=== PATIENT | male | born 1955 | race Caucasian/White ===

== ENCOUNTER 2019-09-28 05:30 | Inpatient (IN) | payer OTHER ==
[2019-09-21 14:43] LABS: BASOPHILS % (AUTO) 0.7 % (0-1); EOSINOPHILS # (AUTO) 0.1 X10'3 (0-0.9); EOSINOPHILS % (AUTO) 1.1 % (0-6); LYMPHOCYTES # (AUTO) 1.3 X10'3 (1.1-4.8); MEAN CORPUSCULAR HEMOGLOBIN 23.9 PG (27.0-31.0); MEAN CORPUSCULAR HGB CONC 31.5 g/dL (33.0-36.5); MEAN CORPUSCULAR VOLUME 75.6 FL (78-98); MEAN PLATELET VOLUME 7.5 FL (7.4-10.4); MONOCYTES # (AUTO) 0.7 X10'3 (0-0.9); MONOCYTES % (AUTO) 9.6 % (2-12); NEUTROPHILS # (AUTO) 4.9 X10'3 (1.8-7.7); NEUTROPHILS % (AUTO) 69.6 % (42-75); PRE OP HEMATOCRIT 31.5 % (42.0-52.0); PRE OP PLATELET COUNT 382 X10'3 (140-440); RED BLOOD COUNT 4.16 X10'6 (4.70-6.10); RED CELL DISTRIBUTION WIDTH 15.3 % (11.5-14.5)
[2019-09-21 14:49] LABS: PRE OP INR 1.1 INR; PRE OP PROTIME 11.3 SECONDS (9.0-12.0)
[2019-09-21 14:50] LABS: PRE OP HEMOGLOBIN 9.9 g/dL (14.0-17.9)
[2019-09-21 15:05] LABS: ALBUMIN 3.5 G/DL (3.4-5.0); ALBUMIN/GLOBULIN RATIO 1.1 (1.1-1.5); ALKALINE PHOSPHATASE 68 IU/L (46-116); BLOOD UREA NITROGEN 18 MG/DL (7-18); CALCIUM 8.4 MG/DL (8.5-10.1); CHLORIDE 108 MMOL/L (99-107); PRE OP ALT 16 U/L (30-65); PRE OP ANION GAP 7 (8-16); PRE OP AST 14 U/L (10-37); PRE OP BILIRUB, TOTAL 0.3 MG/DL (0.0-1.0); PRE OP GLUCOSE 117 MG/DL (70-104); PRE OP POTASSIUM 3.8 MMOL/L (3.4-5.1); PRE OP SODIUM 142 MMOL/L (135-145); TOTAL CARBON DIOXIDE 26.9 MMOL/L (24-32); TOTAL PROTEIN 6.6 G/DL (6.4-8.2); eGFR 61 ML/MIN
[2019-09-28] VITALS (17 sets, daily range): BP systolic 122–153; BP diastolic 63–87
[~2019-09-28] VITALS: Ht 182.9 cm; Wt 86.2 kg
[~2019-09-28 05:30] MED LIST: BECL10.62 INH; FERR325T28 PO; MONT10TA26 PO; RIVA15TA PO; ceFOXitin sod/dextrose 2g/50ml 50 ML IV ONE; famotidine 20mg tablet PO ONE; ringers solution, lacted 1,000 ML IV SCH
[2019-09-28] MEDS ORDERED: LIDOcaine 1% (10mg/ml) 2ml vial ONE (06:21)
[2019-09-28] MEDS ORDERED: ringers solution, lacted 1,000 ML IV SCH (06:23)
[2019-09-28] MEDS ORDERED: hydrALAZINE 20mg/ml inj. IV PRN (06:25)
[2019-09-28] MEDS ORDERED: fentaNYL/PF 50MCG/1 ML 2ML syringe IV PRN ×2 (06:25)
[2019-09-28] MEDS ORDERED: morphine 2 MG/ML inj. syringe IV PRN (06:25)
[2019-09-28] MEDS ORDERED: labetalol 20mg/4ml (5mg/ml) syringe IV PRN (06:25)
[2019-09-28] MEDS ORDERED: morphine 4 MG/ML inj SYRINge IV PRN (06:25)
[2019-09-28] MEDS ORDERED: ondansetron/PF 4mg/2ml inj IV PRN ×2 (06:25→12:05)
[2019-09-28] MEDS ORDERED: LIDOcaine 1% 30ml preserv. free vial ONE (06:39)
[2019-09-28] MEDS ORDERED: BUPIVAcaine/PF 2.5 mg/ml (0.25%) 30ml vial ONE (06:39)
[2019-09-28] MEDS ORDERED: fentaNYL /PF 50mcg/ml 5ml ampule ONE (07:18)
[2019-09-28] MEDS ORDERED: midazolam 2 mg/2 ml injection ONE (07:18)
[2019-09-28] MEDS ORDERED: dexamethasone sod phosphate 4mg/ml inj. ONE (07:19)
[2019-09-28] MEDS ORDERED: rocuronium 10mg/ml inj IV ONE ×3 (07:19→11:00)
[2019-09-28] MEDS ORDERED: LIDOcaine 2% (20mg/ml) 5ml vial ONE (07:19)
[2019-09-28] MEDS ORDERED: propofol inj 20 ML IV ONE (07:19)
[2019-09-28] MEDS ORDERED: neostigmine methylsulfate 1 MG/ML 10ml vial ONE (07:19)
[2019-09-28] MEDS ORDERED: ondansetron/PF 4mg/2ml inj ONE (07:19)
[2019-09-28] MEDS ORDERED: glycopyrrolate 0.2mg/ml inj ONE (07:19)
[2019-09-28] MEDS ORDERED: sevoflurane 250ml liquid IH ONE (07:36)
[2019-09-28] MEDS ORDERED: ePHEDrine 50MG/ML INJ. ONE (08:33)
[2019-09-28] MEDS ORDERED: albumin (Human) 5% 250ml 250 ML IV ONE (08:59)
[2019-09-28] MEDS ORDERED: INDOCYANINE GREEN 25 MG/10 ML VIAL IV ONE ×2 (09:15→09:20)
[2019-09-28] MEDS ORDERED: fentaNYL/PF 50MCG/1 ML 2ML syringe ONE (10:54)
--- NOTE | 2019-09-28 12:00 | NUR ---
Received from OR via BED, accompanied by Anesthesiologist DR LUX and report given by Anesthesiologist. PT DROWSY, NO S/S OF DISTRESS/DISCOMFORT, ABDOMEN W/SMALL ISLAND DRSG AT PUBIS CDI, 5 LAP SITES W/BANDLELAND CDI, COHEN TO GRAVITY DRAINAGE W/YELLOW URINE IN DRAINAGE BAG. Addendum: 09/28/19 at 1239 by Ruba Bobby RN Amended: Links added.
[2019-09-28] MEDS ORDERED: Potassium Cl inj 20 MEQ in ringers solution, lacted 1,000 ML IV SCH (12:03)
[2019-09-28] MEDS ORDERED: HYDROcodone/acetaminophen 5mg/325mg tablet PO PRN (12:05)
--- NOTE | 2019-09-28 13:18 | NUR ---
Received report from KAYLEN Yeh. Awaiting patients arrival to room 344A.
--- NOTE | 2019-09-28 13:20 | NUR ---
Report called to receiving nurse. Transferred via BED, 2 BAGS OF Belongings SENT W/PT TO ROOM 344A, [facility] TRANSPORTED PT, RECEIVING RN NOTIFIED OF PTS ARRIVAL. Special Issues communicated to receiving nurse. YES. Addendum: 09/28/19 at 1348 by Ruba Bobby RN Amended: Links added.
--- NOTE | 2019-09-28 13:42 | NUR ---
Received patient to room 344A via bed accompanied by x2 OR transportation economics teacher. Patient is alert and oriented with complaints of pain 5/10, X5 lap sites with band aids CDI. Chicas catheter patent and draining to gravity clear, yellow urine. X2 bag of belonging placed in closet. Post op vitals initiated, on 2LNC, VSS. Patient oriented to room and call light. Call light placed within patient's reach. Bed low and locked.
[2019-09-28] MEDS: ketorolac trometh. 30mg/ml inj. IV SCH ×2 (13:58→21:06)
[2019-09-28] MEDS: acetaminophen 325mg tablet PO SCH ×2 (13:58→21:06)
[2019-09-28] MEDS: Potassium Cl inj 20 MEQ in ringers solution, lacted 1,000 ML IV SCH ×2 (14:30→23:10)
--- NOTE | 2019-09-28 18:39 | NUR ---
Problems reprioritized. Patient report given, questions answered & plan of care reviewed with KAYLEN crain.
[2019-09-28] MEDS: budesonide 0.5mg/2ml UD nebule IH SCH (19:15)
[2019-09-29] VITALS: BP 117/55
[2019-09-29] MEDS: ketorolac trometh. 30mg/ml inj. IV SCH ×4 (02:20→20:15)
[2019-09-29] MEDS: acetaminophen 325mg tablet PO SCH ×4 (02:20→20:19)
[2019-09-29 03:53] VITALS: BP 125/60
[2019-09-29 05:30] LABS: BASOPHILS % (AUTO) 0.1 % (0-1); EOSINOPHILS % (AUTO) 0 % (0-6); HEMATOCRIT 25.9 % (42.0-52.0); HEMOGLOBIN 8.2 g/dl (14.0-17.9); LYMPHOCYTES # (AUTO) 1.1 X10'3 (1.1-4.8); LYMPHOCYTES % (AUTO) 9.5 % (21-51); MEAN CORPUSCULAR HEMOGLOBIN 23.9 PG (27.0-31.0); MEAN CORPUSCULAR HGB CONC 31.6 g/dL (33.0-36.5); MEAN CORPUSCULAR VOLUME 75.4 FL (78-98); MONOCYTES # (AUTO) 1.2 X10'3 (0-0.9); MONOCYTES % (AUTO) 10.4 % (2-12); NEUTROPHILS # (AUTO) 8.9 X10'3 (1.8-7.7); PLATELET COUNT 224 X10'3 (140-440); RED BLOOD COUNT 3.43 X10'6 (4.70-6.10); RED CELL DISTRIBUTION WIDTH 15.3 % (11.5-14.5); WHITE BLOOD COUNT 11.1 X10'3 (4.5-11.0)
[2019-09-29 05:34] LABS: ALBUMIN 2.9 G/DL (3.4-5.0); ANION GAP 3 (8-16); BLOOD UREA NITROGEN 16 MG/DL (7-18); BUN/CREATININE RATIO 13.7 (5.4-32.0); CHLORIDE 109 MMOL/L (99-107); CREATININE 1.17 MG/DL (0.60-1.10); GLUCOSE 102 MG/DL (70-104); POTASSIUM 4.3 MMOL/L (3.5-5.1); SODIUM 140 MMOL/L (135-145); TOTAL CARBON DIOXIDE 28.2 MMOL/L (24-32); eGFR 63 ML/MIN
--- NOTE | 2019-09-29 06:22 | NUR ---
Patient in room [facility]. I have received report from KAYLEN Sheets and had the opportunity to ask questions and assume patient care.
--- NOTE | 2019-09-29 06:26 | NUR ---
Problems reprioritized. Patient report given, questions answered & plan of care reviewed with KAYLEN Leung.
[2019-09-29] MEDS: enoxaparin 40mg/0.4ml syringe SQ SCH (07:05)
[2019-09-29] MEDS: potassium CL 20mEq in D5-1/2NS 1,000 ML IV SCH (07:35)
[2019-09-29 08:00] VITALS: BP 119/55
[2019-09-29] MEDS: budesonide 0.5mg/2ml UD nebule IH SCH ×2 (09:27→19:39)
[2019-09-29] MEDS: montelukast 10mg tablet PO SCH (09:27)
[2019-09-29 11:00] VITALS: BP 127/63
--- NOTE | 2019-09-29 11:34 | NUR ---
Patient aware there is an order for his lopez catheter to be dc but he has been on a phone call. Will remove once patient is done with phone call.
--- NOTE | 2019-09-29 12:23 | NUR ---
Patient lopez catheter dc'd. Patient tolerated well.
--- NOTE | 2019-09-29 18:00 | NUR ---
Patient in room [facility] 344. I have received report from Madhu ABDULLAHI and had the opportunity to ask questions and assume patient care.
--- NOTE | 2019-09-29 18:57 | NUR ---
Problems reprioritized. Patient report given, questions answered & plan of care reviewed with KAYLEN Wilder.
[2019-09-29 19:00] VITALS: BP 145/60
[2019-09-30] VITALS: BP 138/65
[2019-09-30] MEDS: acetaminophen 325mg tablet PO SCH ×4 (02:14→20:00)
[2019-09-30] MEDS: ketorolac trometh. 30mg/ml inj. IV SCH ×4 (02:15→20:50)
[2019-09-30] MEDS: potassium CL 20mEq in D5-1/2NS 1,000 ML IV SCH (02:20)
[2019-09-30 05:02] LABS: BASOPHILS % (AUTO) 0.4 % (0-1); EOSINOPHILS # (AUTO) 0.1 X10'3 (0-0.9); EOSINOPHILS % (AUTO) 0.9 % (0-6); HEMATOCRIT 29.5 % (42.0-52.0); HEMOGLOBIN 9.3 g/dl (14.0-17.9); LYMPHOCYTES # (AUTO) 1.7 X10'3 (1.1-4.8); LYMPHOCYTES % (AUTO) 16.9 % (21-51); MEAN CORPUSCULAR HEMOGLOBIN 23.9 PG (27.0-31.0); MEAN CORPUSCULAR HGB CONC 31.5 g/dL (33.0-36.5); MEAN CORPUSCULAR VOLUME 75.7 FL (78-98); MEAN PLATELET VOLUME 7.8 FL (7.4-10.4); MONOCYTES # (AUTO) 1.1 X10'3 (0-0.9); MONOCYTES % (AUTO) 10.7 % (2-12); NEUTROPHILS # (AUTO) 7.2 X10'3 (1.8-7.7); NEUTROPHILS % (AUTO) 71.1 % (42-75); PLATELET COUNT 256 X10'3 (140-440); RED CELL DISTRIBUTION WIDTH 15.6 % (11.5-14.5); WHITE BLOOD COUNT 10.2 X10'3 (4.5-11.0)
[2019-09-30 05:23] LABS: ALBUMIN 3.1 G/DL (3.4-5.0); ANION GAP 9 (8-16); BLOOD UREA NITROGEN 11 MG/DL (7-18); BUN/CREATININE RATIO 10.5 (5.4-32.0); CALCIUM 8.2 MG/DL (8.5-10.1); CHLORIDE 109 MMOL/L (99-107); CREATININE 1.05 MG/DL (0.60-1.10); GLUCOSE 105 MG/DL (70-104); SODIUM 144 MMOL/L (135-145); TOTAL CARBON DIOXIDE 26.3 MMOL/L (24-32); eGFR 71 ML/MIN
--- NOTE | 2019-09-30 06:20 | NUR ---
Problems reprioritized. Patient report given, questions answered & plan of care reviewed with Estrella ABDULLAHI.
--- NOTE | 2019-09-30 06:22 | NUR ---
Patient in room [facility] 344. I have received report from KAYLEN JOE and had the opportunity to ask questions and assume patient care.
[2019-09-30 07:00] VITALS: BP 136/83
[2019-09-30] MEDS: montelukast 10mg tablet PO SCH (07:13)
[2019-09-30] MEDS: enoxaparin 40mg/0.4ml syringe SQ SCH (07:14)
[2019-09-30] MEDS: budesonide 0.5mg/2ml UD nebule IH SCH ×2 (08:30→20:54)
[2019-09-30 11:00] VITALS: BP 113/68
[2019-09-30 18:15] VITALS: BP 135/72
--- NOTE | 2019-09-30 18:32 | NUR ---
Problems reprioritized. Patient report given, questions answered & plan of care reviewed with KAYLEN EUBANKS.
--- NOTE | 2019-09-30 18:41 | NUR ---
Patient in room [facility] 344. I have received report from Estrella Gutierrez RN and had the opportunity to ask questions and assume patient care.
[2019-09-30] MEDS: HYDROcodone/acetaminophen 10/325mg tab PO PRN (20:45)
[2019-10-01] VITALS: BP 141/64
[2019-10-01] MEDS: HYDROcodone/acetaminophen 10/325mg tab PO PRN ×3 (01:53→23:27)
[2019-10-01] MEDS: ketorolac trometh. 30mg/ml inj. IV SCH ×4 (01:54→20:40)
[2019-10-01] MEDS: acetaminophen 325mg tablet PO SCH ×3 (02:00→14:00)
[2019-10-01 05:14] LABS: BASOPHILS % (AUTO) 0.2 % (0-1); EOSINOPHILS # (AUTO) 0.1 X10'3 (0-0.9); EOSINOPHILS % (AUTO) 0.6 % (0-6); HEMATOCRIT 28.3 % (42.0-52.0); HEMOGLOBIN 9.1 g/dl (14.0-17.9); LYMPHOCYTES % (AUTO) 7.3 % (21-51); MEAN CORPUSCULAR HEMOGLOBIN 24.1 PG (27.0-31.0); MEAN CORPUSCULAR HGB CONC 32.1 g/dL (33.0-36.5); MEAN CORPUSCULAR VOLUME 75.2 FL (78-98); MONOCYTES # (AUTO) 1.3 X10'3 (0-0.9); NEUTROPHILS # (AUTO) 11.6 X10'3 (1.8-7.7); NEUTROPHILS % (AUTO) 82.9 % (42-75); PLATELET COUNT 214 X10'3 (140-440); RED BLOOD COUNT 3.76 X10'6 (4.70-6.10); RED CELL DISTRIBUTION WIDTH 15.5 % (11.5-14.5)
[2019-10-01 05:21] LABS: ALBUMIN 2.7 G/DL (3.4-5.0); ANION GAP 7 (8-16); BLOOD UREA NITROGEN 12 MG/DL (7-18); BUN/CREATININE RATIO 11.5 (5.4-32.0); CALCIUM 8.1 MG/DL (8.5-10.1); CHLORIDE 106 MMOL/L (99-107); CREATININE 1.04 MG/DL (0.60-1.10); GLUCOSE 102 MG/DL (70-104); POTASSIUM 3.8 MMOL/L (3.5-5.1); SODIUM 141 MMOL/L (135-145); TOTAL CARBON DIOXIDE 28.1 MMOL/L (24-32); eGFR 72 ML/MIN
--- NOTE | 2019-10-01 06:40 | NUR ---
Problems reprioritized. Patient report given, questions answered & plan of care reviewed with KAYLEN Mcginnis.
--- NOTE | 2019-10-01 06:49 | NUR ---
Patient in room [facility] 344. I have received report from KAYLEN Moreno and had the opportunity to ask questions and assume patient care.
[2019-10-01 07:00] VITALS: BP 118/67
[2019-10-01] MEDS: enoxaparin 40mg/0.4ml syringe SQ SCH (07:56)
[2019-10-01] MEDS: montelukast 10mg tablet PO SCH (07:56)
--- NOTE | 2019-10-01 08:51 | NUR ---
Pt transported to radiology for upright KUB via wheelchair
--- NOTE | 2019-10-01 09:01 | NUR ---
pt returned from radiology
[2019-10-01] MEDS: budesonide 0.5mg/2ml UD nebule IH SCH ×2 (09:30→20:39)
[2019-10-01 11:00] VITALS: BP 125/72
[2019-10-01] MEDS: normal saline 1000ml 1,000 ML IV SCH ×2 (11:08→18:00)
[2019-10-01] MEDS: piperacillin/tazo 4.5gm/100ml 100 ML IV SCH ×2 (11:08→19:34)
[2019-10-01] MEDS ORDERED: iohexol 300mg/ml 100ml inj. ONE (11:29)
--- NOTE | 2019-10-01 11:33 | NUR ---
Pt transported to CT via wheelchair
--- NOTE | 2019-10-01 12:00 | NUR ---
pt returned from CT
[2019-10-01] MEDS ORDERED: acetaminophen 325mg tablet PO PRN (14:10)
[2019-10-01 18:00] VITALS: BP 143/60
--- NOTE | 2019-10-01 18:00 | NUR ---
Patient in room [facility] 344. I have received report from Rahel ABDULLAHI and had the opportunity to ask questions and assume patient care.
--- NOTE | 2019-10-01 18:52 | NUR ---
Problems reprioritized. Patient report given, questions answered & plan of care reviewed with KAYLEN Pink.
[2019-10-02] VITALS (18 sets, daily range): BP systolic 97–148; BP diastolic 54–79
[2019-10-02] MEDS: normal saline 1000ml 1,000 ML IV SCH ×4 (00:20→18:52)
[2019-10-02] MEDS: ketorolac trometh. 30mg/ml inj. IV SCH ×2 (01:49→08:00)
[2019-10-02 05:26] LABS: BASOPHILS % (AUTO) 0.2 % (0-1); EOSINOPHILS # (AUTO) 0.3 X10'3 (0-0.9); EOSINOPHILS % (AUTO) 1.4 % (0-6); HEMATOCRIT 30.3 % (42.0-52.0); HEMOGLOBIN 9.5 g/dl (14.0-17.9); LYMPHOCYTES # (AUTO) 1.5 X10'3 (1.1-4.8); LYMPHOCYTES % (AUTO) 7.7 % (21-51); MEAN CORPUSCULAR HEMOGLOBIN 23.5 PG (27.0-31.0); MEAN CORPUSCULAR HGB CONC 31.5 g/dL (33.0-36.5); MEAN CORPUSCULAR VOLUME 74.7 FL (78-98); MEAN PLATELET VOLUME 8.4 FL (7.4-10.4); MONOCYTES # (AUTO) 1.6 X10'3 (0-0.9); MONOCYTES % (AUTO) 8.1 % (2-12); NEUTROPHILS # (AUTO) 16.2 X10'3 (1.8-7.7); NEUTROPHILS % (AUTO) 82.6 % (42-75); PLATELET COUNT 284 X10'3 (140-440); RED BLOOD COUNT 4.05 X10'6 (4.70-6.10); RED CELL DISTRIBUTION WIDTH 16.2 % (11.5-14.5); WHITE BLOOD COUNT 19.6 X10'3 (4.5-11.0)
[2019-10-02 05:53] LABS: ALBUMIN 2.8 G/DL (3.4-5.0); ANION GAP 13 (8-16); BLOOD UREA NITROGEN 17 MG/DL (7-18); BUN/CREATININE RATIO 11.6 (5.4-32.0); CHLORIDE 106 MMOL/L (99-107); CREATININE 1.46 MG/DL (0.60-1.10); GLUCOSE 104 MG/DL (70-104); POTASSIUM 3.3 MMOL/L (3.5-5.1); SODIUM 141 MMOL/L (135-145); TOTAL CARBON DIOXIDE 21.7 MMOL/L (24-32); eGFR 49 ML/MIN
[2019-10-02] MEDS ORDERED: HYDROmorphone inj. 0.5 MG/0.5 ML DISP.SYRIN IV PRN (06:20)
[2019-10-02] MEDS ORDERED: HYDROmorphone 1 mg/ml syringe IV PRN (06:20)
--- NOTE | 2019-10-02 06:31 | NUR ---
Problems reprioritized. Patient report given, questions answered & plan of care reviewed with Rahel ABDULLAHI.
--- NOTE | 2019-10-02 06:44 | NUR ---
Patient in room [facility]. I have received report from KAYLEN Pink and had the opportunity to ask questions and assume patient care.
[2019-10-02] MEDS: budesonide 0.5mg/2ml UD nebule IH SCH ×2 (07:21→19:33)
[2019-10-02] MEDS: piperacillin/tazo 4.5gm/100ml 100 ML IV SCH ×2 (07:46→19:34)
[2019-10-02] MEDS ORDERED: BUPIVAcaine/PF 2.5mg/ml (0.25%) 10ml vial ONE (07:51)
[2019-10-02] MEDS ORDERED: BUPIVACAINE liposomal/PF 13.3 MG/ML vial IM ONE (07:51)
[2019-10-02] MEDS: enoxaparin 40mg/0.4ml syringe SQ SCH (08:00)
[2019-10-02] MEDS: montelukast 10mg tablet PO SCH (08:00)
--- NOTE | 2019-10-02 08:06 | NUR ---
Pt transported to OR in hospital bed. Belongings left in room 414M
[2019-10-02] MEDS ORDERED: morphine 2 MG/ML inj. syringe IV PRN (08:10)
[2019-10-02] MEDS ORDERED: labetalol 20mg/4ml (5mg/ml) syringe IV PRN (08:10)
[2019-10-02] MEDS ORDERED: ringers solution, lacted 1,000 ML IV SCH (08:10)
[2019-10-02] MEDS ORDERED: fentaNYL/PF 50MCG/1 ML 2ML syringe IV PRN ×2 (08:10)
[2019-10-02] MEDS ORDERED: morphine 4 MG/ML inj SYRINge IV PRN (08:10)
[2019-10-02] MEDS ORDERED: ondansetron/PF 4mg/2ml inj IV PRN ×2 (08:10→09:30)
[2019-10-02] MEDS ORDERED: hydrALAZINE 20mg/ml inj. IV PRN (08:10)
[2019-10-02] MEDS ORDERED: midazolam 2 mg/2 ml injection ONE (08:14)
[2019-10-02] MEDS ORDERED: fentaNYL/PF 50MCG/1 ML 2ML syringe ONE (08:14)
[2019-10-02] MEDS ORDERED: sevoflurane 250ml liquid IH ONE (08:15)
[2019-10-02] MEDS ORDERED: dexamethasone sod phosphate 10mg/ml inj ONE (08:15)
[2019-10-02] MEDS ORDERED: neostigmine methylsulfate 1 MG/ML 10ml vial ONE (08:15)
[2019-10-02] MEDS ORDERED: ondansetron/PF 4mg/2ml inj ONE (08:15)
[2019-10-02] MEDS ORDERED: glycopyrrolate 0.2mg/ml inj ONE (08:25)
[2019-10-02] MEDS ORDERED: rocuronium 10mg/ml inj IV ONE (08:25)
[2019-10-02] MEDS ORDERED: propofol inj 20 ML IV ONE (08:26)
[2019-10-02] MEDS ORDERED: LIDOcaine 2% (20mg/ml) 5ml vial ONE (08:26)
[2019-10-02] MEDS ORDERED: CADD PCA waste documentation MC PRN (09:30)
[2019-10-02] MEDS ORDERED: naloxone 0.4 mg/ml inj IV PRN (09:30)
--- NOTE | 2019-10-02 09:30 | NUR ---
RECEIVED FROM OR VIA BED ACCOMPANIED BY ANESTHESIOLOGIST DR LUX, REPORT GIVEN. PT SLEEPING BUT AROUSES WITH NO COMPLAINT OF PAIN AT THIS TIME. 18 GAUGE PIV L FA PATENT AND RUNNING LR AT 100 ML/HR. f/C DRAINING CLEAR YELLOW URINE. ISLAND DRESSING TO ABD CDI, ABD SOFT, SKIN PINK AND WARM, VSS.
--- NOTE | 2019-10-02 09:59 | NUR ---
Problems reprioritized. Patient report given, questions answered & plan of care reviewed with KAYLEN Mary.
--- NOTE | 2019-10-02 10:40 | NUR ---
TRANSFERRED TO ROOM VIA BED WITH BED RAILS UP ACCOMPANIED BY MYSELF, REPORT GIVEN. PT AWAKE AND ALERT WITH NO COMPLAINT OF PAIN AT THIS TIME. 18 GAUGE PIV L FA PATENT AND RUNNING LR AT 100 ML/HR. f/C DRAINING CLEAR YELLOW URINE. ISLAND DRESSING TO ABD CDI, ABD SOFT, SKIN PINK AND WARM, VSS. LEFT IN CARE OF SURGICAL FLOOR RN.
[2019-10-02] MEDS: HYDROmorphone/NS 1 mg/ml CADD 50 ML IV SCH ×8 (10:42→23:00)
--- NOTE | 2019-10-02 18:27 | NUR ---
Problems reprioritized. Patient report given, questions answered & plan of care reviewed with Lisa ABDULLAHI.
[2019-10-02] MEDS: lactobacillus rhamnosus 10,000 MMU CELLS/CAPSULE PO SCH (19:34)
[2019-10-02] MEDS: ringers solution, lacted 1,000 ML IV SCH (21:25)
[2019-10-03] VITALS: BP_SYST 102; BP_SYST 152; BP_DIAS 64; BP_DIAS 80
[2019-10-03] MEDS: HYDROmorphone/NS 1 mg/ml CADD 50 ML IV SCH ×12 (01:00→23:00)
[2019-10-03] MEDS: ringers solution, lacted 1,000 ML IV SCH ×4 (03:18→19:05)
[2019-10-03 04:00] VITALS: BP 159/78
--- NOTE | 2019-10-03 06:00 | NUR ---
Patient in room [facility] 344. I have received report from KAYLEN Gonzalez and had the opportunity to ask questions and assume patient care.
[2019-10-03 06:17] LABS: BASOPHILS % (AUTO) 0 % (0-1); EOSINOPHILS % (AUTO) 0 % (0-6); HEMATOCRIT 26.1 % (42.0-52.0); HEMOGLOBIN 8.3 g/dl (14.0-17.9); LYMPHOCYTES # (AUTO) 0.4 X10'3 (1.1-4.8); LYMPHOCYTES % (AUTO) 3.1 % (21-51); MEAN CORPUSCULAR HEMOGLOBIN 23.7 PG (27.0-31.0); MEAN PLATELET VOLUME 8.2 FL (7.4-10.4); MONOCYTES # (AUTO) 0.9 X10'3 (0-0.9); MONOCYTES % (AUTO) 6.1 % (2-12); NEUTROPHILS # (AUTO) 12.7 X10'3 (1.8-7.7); NEUTROPHILS % (AUTO) 90.8 % (42-75); PLATELET COUNT 265 X10'3 (140-440); RED BLOOD COUNT 3.52 X10'6 (4.70-6.10)
[2019-10-03 06:32] LABS: ALBUMIN 2.3 G/DL (3.4-5.0); ANION GAP 11 (8-16); BLOOD UREA NITROGEN 21 MG/DL (7-18); BUN/CREATININE RATIO 20.2 (5.4-32.0); CALCIUM 8.1 MG/DL (8.5-10.1); CHLORIDE 109 MMOL/L (99-107); CREATININE 1.04 MG/DL (0.60-1.10); GLUCOSE 114 MG/DL (70-104); POTASSIUM 3.8 MMOL/L (3.5-5.1); SODIUM 143 MMOL/L (135-145); TOTAL CARBON DIOXIDE 23.1 MMOL/L (24-32); eGFR 72 ML/MIN
[2019-10-03 07:00] VITALS: BP 118/86
[2019-10-03] MEDS: budesonide 0.5mg/2ml UD nebule IH SCH ×2 (07:22→19:03)
[2019-10-03] MEDS: lactobacillus rhamnosus 10,000 MMU CELLS/CAPSULE PO SCH ×2 (07:34→19:37)
[2019-10-03] MEDS: montelukast 10mg tablet PO SCH (07:34)
[2019-10-03] MEDS: piperacillin/tazo 4.5gm/100ml 100 ML IV SCH ×2 (07:34→19:05)
[2019-10-03] MEDS: enoxaparin 40mg/0.4ml syringe SQ SCH (07:35)
[2019-10-03 11:00] VITALS: BP 158/79
--- NOTE | 2019-10-03 14:58 | NUR ---
Initial: Pt admit w/ new DX colon CA s/p ex lap and partial colectomy. Pt developed anastamotic leak, increased abdominal distention and free air in abdomen s/p return to OR 10/01 for leak repair. Pt on ice chips previously clear liquids first 2 days then full liquids third and fourth admit dates PO 25-50% avg not meeting nutrition needs. Day 5 inadequate nutrition at this time. LBM /12; no BM post-op. May benefit from bowel care post-op. If to remain NPO w/ inadequate nutrition and no return of GI function 7-10 days may require PN to further meet nutrition needs post-op. Will continue to monitor. Rec: 1. advance diet as medically indicated to low-residue post-op 2. routine bowel care 3. monitor for ONS needs once advanced to PO diet 4. IF prolonged NPO/restrictive diet 7 days or greater w/ no BM consider PN to meet nutrition needs post-op 5. weekly wts Addendum: 10/03/19 at [address] Amended: Links added.
--- NOTE | 2019-10-03 18:15 | NUR ---
Problems reprioritized. Patient report given, questions answered & plan of care reviewed with KAYLEN Choudhary.
[2019-10-03] MEDS: mag hydrox/Alum hydrox/simeth 30ml oral suspension PO PRN (19:04)
[2019-10-03 20:00] VITALS: BP 165/85
--- NOTE | 2019-10-03 21:13 | NUR ---
Patient in room [facility] 344. I have received report from KAYLEN Nam and had the opportunity to ask questions and assume patient care. Addendum: 10/03/19 at 2113 by Esthela Rosales RN Amended: Links added.
[2019-10-04] MEDS: mag hydrox/Alum hydrox/simeth 30ml oral suspension PO PRN ×2 (00:05→07:23)
[2019-10-04 00:10] VITALS: BP 144/67
[2019-10-04] MEDS: HYDROmorphone/NS 1 mg/ml CADD 50 ML IV SCH ×12 (01:00→23:00)
[2019-10-04] MEDS: ringers solution, lacted 1,000 ML IV SCH ×4 (04:29→23:46)
--- NOTE | 2019-10-04 06:14 | NUR ---
Problems reprioritized. Patient report given, questions answered & plan of care reviewed with KAYLEN Givens. Addendum: 10/04/19 at 0615 by Esthela Rosales RN Amended: Links added.
--- NOTE | 2019-10-04 06:48 | NUR ---
Patient in room [facility] 344. I have received report from Esthela ABDULLAHI and had the opportunity to ask questions and assume patient care.
[2019-10-04 07:00] VITALS: BP 157/74
[2019-10-04] MEDS: enoxaparin 40mg/0.4ml syringe SQ SCH (07:24)
[2019-10-04] MEDS: montelukast 10mg tablet PO SCH (07:24)
[2019-10-04] MEDS: piperacillin/tazo 4.5gm/100ml 100 ML IV SCH ×2 (07:24→20:43)
[2019-10-04] MEDS: lactobacillus rhamnosus 10,000 MMU CELLS/CAPSULE PO SCH ×2 (07:27→20:00)
[2019-10-04] MEDS: budesonide 0.5mg/2ml UD nebule IH SCH ×2 (07:33→19:24)
[2019-10-04 12:40] VITALS: BP 158/71
[2019-10-04 13:26] LABS: BASOPHILS % (AUTO) 0.1 % (0-1); EOSINOPHILS # (AUTO) 0.1 X10'3 (0-0.9); EOSINOPHILS % (AUTO) 0.5 % (0-6); HEMATOCRIT 25.7 % (42.0-52.0); HEMOGLOBIN 8.1 g/dl (14.0-17.9); LYMPHOCYTES % (AUTO) 9.2 % (21-51); MEAN CORPUSCULAR HEMOGLOBIN 23.3 PG (27.0-31.0); MEAN CORPUSCULAR HGB CONC 31.4 g/dL (33.0-36.5); MEAN CORPUSCULAR VOLUME 74.3 FL (78-98); MEAN PLATELET VOLUME 7.5 FL (7.4-10.4); MONOCYTES # (AUTO) 1.1 X10'3 (0-0.9); MONOCYTES % (AUTO) 9.8 % (2-12); NEUTROPHILS # (AUTO) 8.6 X10'3 (1.8-7.7); NEUTROPHILS % (AUTO) 80.4 % (42-75); PLATELET COUNT 285 X10'3 (140-440); RED BLOOD COUNT 3.45 X10'6 (4.70-6.10); RED CELL DISTRIBUTION WIDTH 15.9 % (11.5-14.5); WHITE BLOOD COUNT 10.7 X10'3 (4.5-11.0)
[2019-10-04 13:36] LABS: ALBUMIN 2.1 G/DL (3.4-5.0); ANION GAP 6 (8-16); BLOOD UREA NITROGEN 20 MG/DL (7-18); BUN/CREATININE RATIO 21.1 (5.4-32.0); CALCIUM 7.9 MG/DL (8.5-10.1); CHLORIDE 110 MMOL/L (99-107); CREATININE 0.95 MG/DL (0.60-1.10); GLUCOSE 110 MG/DL (70-104); POTASSIUM 3.8 MMOL/L (3.5-5.1); SODIUM 145 MMOL/L (135-145); TOTAL CARBON DIOXIDE 29.3 MMOL/L (24-32); eGFR 80 ML/MIN
[2019-10-04] MEDS ORDERED: methylnaltrexone br 12mg/0.6ml inj***SubQ only SQ ONE (18:15)
[2019-10-04] MEDS ORDERED: pantoprazole 40 MG vial IV ONE (18:15)
--- NOTE | 2019-10-04 19:10 | NUR ---
Problems reprioritized. Patient report given, questions answered & plan of care reviewed with Esthela ABDULLAHI.
[2019-10-04 20:00] VITALS: BP 160/69
--- NOTE | 2019-10-04 22:19 | NUR ---
Patient in room [facility] 344. I have received report from KAYLEN Givens and had the opportunity to ask questions and assume patient care. Addendum: 10/04/19 at 2220 by Esthela Rosales RN Amended: Links added.
[2019-10-05 00:40] VITALS: BP 158/69
[2019-10-05] MEDS: HYDROmorphone/NS 1 mg/ml CADD 50 ML IV SCH ×12 (01:00→23:00)
--- NOTE | 2019-10-05 06:11 | NUR ---
Problems reprioritized. Patient report given, questions answered & plan of care reviewed with KAYLEN Gross. Addendum: 10/05/19 at 0611 by Esthela Rosales RN Amended: Links added.
--- NOTE | 2019-10-05 06:16 | NUR ---
Patient in room [facility]. I have received report from KAYLEN Choudhary and had the opportunity to ask questions and assume patient care.
[2019-10-05 07:00] VITALS: BP 169/79
[2019-10-05] MEDS: montelukast 10mg tablet PO SCH (07:03)
[2019-10-05] MEDS: enoxaparin 40mg/0.4ml syringe SQ SCH (07:03)
[2019-10-05] MEDS: potassium CL 20mEq in D5-1/2NS 1,000 ML IV SCH ×2 (07:03→19:07)
[2019-10-05 07:07] LABS: ALBUMIN 2.1 G/DL (3.4-5.0); ANION GAP 8 (8-16); BLOOD UREA NITROGEN 18 MG/DL (7-18); BUN/CREATININE RATIO 20.5 (5.4-32.0); CALCIUM 7.8 MG/DL (8.5-10.1); CHLORIDE 110 MMOL/L (99-107); CREATININE 0.88 MG/DL (0.60-1.10); GLUCOSE 102 MG/DL (70-104); POTASSIUM 3.8 MMOL/L (3.5-5.1); SODIUM 143 MMOL/L (135-145); TOTAL CARBON DIOXIDE 25.1 MMOL/L (24-32); eGFR 87 ML/MIN
[2019-10-05 07:08] LABS: BASOPHILS % (AUTO) 0.2 % (0-1); EOSINOPHILS # (AUTO) 0.2 X10'3 (0-0.9); EOSINOPHILS % (AUTO) 1.6 % (0-6); HEMOGLOBIN 8.2 g/dl (14.0-17.9); LYMPHOCYTES # (AUTO) 1.3 X10'3 (1.1-4.8); LYMPHOCYTES % (AUTO) 12.2 % (21-51); MEAN CORPUSCULAR HEMOGLOBIN 23.4 PG (27.0-31.0); MEAN CORPUSCULAR HGB CONC 31.7 g/dL (33.0-36.5); MEAN CORPUSCULAR VOLUME 73.7 FL (78-98); MEAN PLATELET VOLUME 7.9 FL (7.4-10.4); MONOCYTES # (AUTO) 1.3 X10'3 (0-0.9); MONOCYTES % (AUTO) 12.4 % (2-12); NEUTROPHILS # (AUTO) 7.7 X10'3 (1.8-7.7); NEUTROPHILS % (AUTO) 73.6 % (42-75); PLATELET COUNT 301 X10'3 (140-440); RED BLOOD COUNT 3.52 X10'6 (4.70-6.10); RED CELL DISTRIBUTION WIDTH 15.7 % (11.5-14.5); WHITE BLOOD COUNT 10.5 X10'3 (4.5-11.0)
[2019-10-05] MEDS: lactobacillus rhamnosus 10,000 MMU CELLS/CAPSULE PO SCH ×2 (08:00→20:00)
[2019-10-05] MEDS: piperacillin/tazo 4.5gm/100ml 100 ML IV SCH ×2 (08:08→20:00)
[2019-10-05] MEDS: ketorolac tromethamine 15mg/ml inj. IV SCH ×4 (08:11→20:00)
[2019-10-05] MEDS: budesonide 0.5mg/2ml UD nebule IH SCH ×2 (08:59→19:51)
[2019-10-05 11:00] VITALS: BP 144/79
--- NOTE | 2019-10-05 12:59 | NUR ---
Reassessment: Patient's diet has just been advanced to clear liquid, documented with 100% PO intake first meal. Pt received one time dose of Relistor 10/03; LBM 10/03. No documentation of stool size however with two BMs per I&O. Will continue to follow closely and monitor need for nutrition intervention. Rec: 1. advance diet as medically indicated to low-residue post-op 2. routine bowel care 3. monitor for ONS needs once advanced to PO diet 4. IF prolonged restrictive diet 7 days or greater w/ no BM consider PN to meet nutrition needs post-op 5. scaled wt per rx Addendum: 10/05/19 at [address] Amended: Links added.
--- NOTE | 2019-10-05 17:41 | NUR ---
Student documentation: I have reviewed and agree with all interventions, assessments performed and documented by KAYLEN Raman. Addendum: 10/05/19 at 1741 by Ginny Bates RN SN khoi ABDULLAHI
[2019-10-05 18:00] VITALS: BP 145/71
--- NOTE | 2019-10-05 18:36 | NUR ---
Problems reprioritized. Patient report given, questions answered & plan of care reviewed with KAYLEN Madrigal.
--- NOTE | 2019-10-05 18:48 | NUR ---
Patient in room [facility]. I have received report from Ginny ABDULLAHI and had the opportunity to ask questions and assume patient care.
[2019-10-05 20:00] VITALS: BP 145/71
[2019-10-06] VITALS: BP 147/73
[2019-10-06] MEDS: HYDROmorphone/NS 1 mg/ml CADD 50 ML IV SCH ×9 (01:00→17:00)
[2019-10-06] MEDS: ketorolac tromethamine 15mg/ml inj. IV SCH ×4 (02:06→20:14)
--- NOTE | 2019-10-06 06:32 | NUR ---
Problems reprioritized. Patient report given, questions answered & plan of care reviewed with Estrella ABDULLAHI.
[2019-10-06 08:00] VITALS: BP 146/71
[2019-10-06] MEDS: lactobacillus rhamnosus 10,000 MMU CELLS/CAPSULE PO SCH ×2 (08:00→20:00)
[2019-10-06] MEDS: montelukast 10mg tablet PO SCH (08:43)
[2019-10-06] MEDS: potassium CL 20mEq in D5-1/2NS 1,000 ML IV SCH (08:44)
[2019-10-06] MEDS: enoxaparin 40mg/0.4ml syringe SQ SCH (08:45)
[2019-10-06] MEDS: piperacillin/tazo 4.5gm/100ml 100 ML IV SCH ×2 (08:45→20:13)
[2019-10-06] MEDS: budesonide 0.5mg/2ml UD nebule IH SCH ×2 (08:48→19:45)
[2019-10-06 11:39] VITALS: BP 135/73
[2019-10-06] MEDS ORDERED: oxyCODONE/APAP 5-325mg tablet PO PRN (15:05)
[2019-10-06 20:00] VITALS: BP 149/72
[2019-10-06 23:30] VITALS: BP 168/81
[2019-10-07] MEDS: ketorolac tromethamine 15mg/ml inj. IV SCH ×2 (03:37→08:48)
--- NOTE | 2019-10-07 06:32 | NUR ---
Patient in room [facility]. I have received report from KAYLEN FORMAN and had the opportunity to ask questions and assume patient care.
[2019-10-07 07:00] VITALS: BP 161/73
[2019-10-07] MEDS: lactobacillus rhamnosus 10,000 MMU CELLS/CAPSULE PO SCH (08:00)
[2019-10-07] MEDS: montelukast 10mg tablet PO SCH (08:48)
[2019-10-07] MEDS: enoxaparin 40mg/0.4ml syringe SQ SCH (08:49)
[2019-10-07] MEDS: piperacillin/tazo 4.5gm/100ml 100 ML IV SCH (08:54)
[2019-10-07] MEDS ORDERED: PER5325T PO (09:26)
[2019-10-07] MEDS: budesonide 0.5mg/2ml UD nebule IH SCH (09:26)
--- NOTE | 2019-10-07 11:40 | NUR ---
PATIENT STABLE AND APPROPRIATE FOR DISCHARGE, EDUCATION GIVEN, IV TAKEN OUT, SCRIPT FOR PERCOCET SENT WITH PAR Addendum: 10/07/19 at 1230 by Estrella Montiel RN PATIENT, ALL BELONGINGS SENT WITH PATIENT, PATIENT TAKEN TO LOBBY IN A WHEELCHAIR TO AN AWAITING CAR WHERE WILL TAKE PATIENT HOME
== END 2019-10-07 11:40 | disposition home or self-care (01) | DRG 330 ==
LOC: UNDOADMIN 05:30 → PAS IN 05:30 → EDSTATUS 07:30 → PAS IN 12:03 → SUR 3N 13:34 → PAS IN 13:34 → SUR 3N 10-02 08:27
PROVIDERS: ADMIT Surgery; ATTEND Surgery
PROC: 0WJP0ZZ Inspection of Gastrointestinal Tract, Open Approach (ICD-10-PCS; 2019-09-28)
PROC: 8E0W4CZ Robotic Assisted Procedure of Trunk Region, Percutaneous Endoscopic Approach (ICD-10-PCS; 2019-09-28)
PROC: 0DBL4ZZ Excision of Transverse Colon, Percutaneous Endoscopic Approach (ICD-10-PCS; principal; 2019-09-28 07:36)
PROC: 0DUE07Z Supplement Large Intestine with Autologous Tissue Substitute, Open Approach (ICD-10-PCS; 2019-10-02)
DX: C18.9 Malignant neoplasm of colon, unspecified (principal); R18.8 Other ascites; K91.89 Other postprocedural complications and disorders of digestive system; K66.0 Peritoneal adhesions (postprocedural) (postinfection); Y83.8 Other surgical procedures as the cause of abnormal reaction of the patient, or of later complication, without mention of misadventure at the time of the procedure
CPT/HCPCS: Z7506; Z7508; 36415; 74018; 74177; 80048; 80053; 82948; 85025; 85610; 85730; 86885; 86900; 86901; 87081; 87635; 93005; 94640; 94760; A4215; A4618; A7000; C1758; C9113; C9290; G0378; J0694; J1100; J1170; J1650; J1885; J2001; J2212; J2250; J2270; J2405; J2543; J2704; J2710; J3010; J3480; J3490; J7030; J7120; J7626; P9045; Q9967